=== PATIENT | male | born 1975 | race Caucasian/White ===

== ENCOUNTER 2016-11-25 06:31 | Emergency (ER) | payer OTHER ==
[~2016-11-25] VITALS: Ht 185.4 cm; Wt 248.8 kg
[~2016-11-25 06:31] MED LIST: CLIN150 PO; CLOT1%T TOPICAL; HCTZ25 PO; LISI20 PO; XEROMIS TOPICAL; [UNRECOGNIZED DRUG - CODE] TOPICAL
[2016-11-25 06:53] VITALS: BP 137/77; PULSE 89; RESP 20; TEMP 98.5; O2SAT 95
--- NOTE | 2016-11-25 06:58 | PD ---
HPI Chief Complaint: Musculoskeletal Complaint Time Seen by Provider: 06:50 Travel History International Travel<30 days: No Contact w/Intl Traveler<30days: No Traveled to known affect area: No History of Present Illness HPI 41-year-old male presents to the emergency department by private transportation for complaint of right foot pain. Patient has Charcot foot with chronic changes and has been seen by podiatry and orthopedist. Patient has been told he does not have any procedural options her surgical options regarding his chronic foot condition. Patient is diabetic and has not been following up with podiatry but has not noticed any ulcerations or wounds on his feet. Patient presents without any coolness or pallor of the foot and states he specifically felt and heard a pop sensation this morning as he was walking without his walking boot across the floor in his bedroom. Patient is reportedly 6/10 in intensity. PFSH Past Medical History Narrative Medical Arthritis negative cardiac catheterization hypertension dyslipidemia CO diabetes Charcot foot osteomyelitis and cellulitis sleep apnea; no surgery; no tobacco use; nursing notes reviewed Arthritis: Yes (LEFT WRIST) Asthma: No Anxiety: No Depression: No Heart Rhythm Problems: No Cancer: No Cardiac Catheterization: Yes (NEG) Cardiovascular Problems: Yes High Cholesterol: No Chest Pain: No Congestive Heart Failure: No COPD: No Cerebrovascular Accident: No Coronary Artery Disease: Yes Diabetes: No Diminished Hearing: No Endocrine: No GERD: No Genitourinary: No Hiatal Hernia: No Immune Disorder: No Kidney Stones: No Musculoskeletal: No Neurologic: No Psychiatric: No Reproductive: No Respiratory: Yes (SLEEP APNEA) Immunizations Current: No Migraines: No Myocardial Infarction: Yes (SLEEP APNEA INDUCED PER PT) Renal Failure: No Seizures: No Sickle Cell Disease: No Sleep Apnea: Yes (BIPAP) Thyroid Disease: No Ulcer: No Past Surgical History Abdominal Surgery: No AICD: No Arteriovenous Shunt: No Cardiac Surgery: Yes (CARDIAC CATH) Ear Surgery: No Endocrine Surgery: No Eye Surgery: No Genitourinary Surgery: No Gynecologic Surgery: No Insulin Pump: No Joint Replacement: No Oral Surgery: No Pacemaker: No Thoracic Surgery: No Other Surgery: Yes Social History Alcohol Use: No Tobacco Use: No Substance Use: No Allergies-Medications (Allergen,Severity, Reaction): Coded Allergies: No Known Allergies (Verified , 11/25/16) Reported Meds & Prescriptions Reported Meds & Active Scripts Active Reported Glipizide 5 Mg Tab 5 Mg PO DAILY Take 30 minutes before a meal Metformin (Metformin HCl) 500 Mg Tab 500 Mg PO DAILY With a meal Meloxicam 15 Mg Tab 15 Mg PO DAILY Hydrochlorothiazide 25 Mg Tab 25 Mg PO DAILY Lisinopril 40 Mg Tab 40 Mg PO DAILY Review of Systems Except as stated in HPI: all other systems reviewed are Neg Physical Exam Narrative Gen.: Well-developed, morbidly obese male in no acute distress no respiratory distress Extremity: Attention right lower extremity; warm pink foot with brisk capillary refill less than 2 seconds; dorsalis pedis pulse 2+ to palpation; no open wounds or ulcerations or erythema noted. Data Data Last Documented VS Vital Signs Date Time Temp Pulse Resp B/P Pulse Ox O2 Delivery O2 Flow Rate FiO2 11/25/16 06:53 98.5 89 20 137/77 95 Room Air Orders Foot, Complete ([id number]) (11/25/16 ) MDM Medical Decision Making Medical Screen Exam Complete: Yes Emergency Medical Condition: Yes Medical Record Reviewed: Yes Differential Diagnosis Stress fracture, plantar fasciitis, strain Narrative Course Imaging of the right foot x-ray ordered Imaging signed over to Dr Piedra Diagnosis Primary Impression: Foot pain, right Referrals: Fire Marshal call for appointment Symone Liriano MD Nov 25, 2016 06:58 Symone Liriano MD Nov 25, 2016 06:58
[2016-11-25] MEDS ORDERED: GLIP5TAB8 PO (07:01)
[2016-11-25] MEDS ORDERED: MELO-1 PO (07:01)
[2016-11-25] MEDS ORDERED: METF500T PO (07:01)
[2016-11-25] MEDS ORDERED: LISI40TA PO (07:01)
[2016-11-25] MEDS ORDERED: HYDR25TA5 PO (07:01)
--- NOTE | 2016-11-25 07:08 | PD ---
Physical Exam Narrative Received sign out from previous team to follow up xray of right foot. 41yo M with charcot foot and DM here with right foot pain after walking to bathroom without his boot. Pt currently does not want any pain medication. DP 2+. Pain in lateral foot. Xray right foot showed chronic and progressive changes at proximal fourth and fifth metatarsal and adjacent TMT joints. Also new abnormal appearance to the navicular bone and cuboid bone. Overall appearance raises suspicion for charcot joint. Pt is known to have charcot joint. Data Data Last Documented VS Vital Signs Date Time Temp Pulse Resp B/P Pulse Ox O2 Delivery O2 Flow Rate FiO2 11/25/16 06:53 98.5 89 20 137/77 95 Room Air Orders Foot, Complete ([id number]) (11/25/16 ) [facility] Supervised Visit with TANIA: No Interpretation(s) Last Impressions Foot X-Ray 11/25/16 0000 Signed Impressions: Service Date/Time: Friday, November 25, 2016 07:12 - CONCLUSION: Abnormal examination with chronic and progressive changes at the proximal fourth and fifth metatarsal and the adjacent TMT joints. Cannot exclude disruption of the Lisfranc joint in this region. There is also new abnormal appearance to the navicular bone and cuboid bone. Overall appearance raises suspicion for Charcot joint. Adrian Mccray MD Diagnosis Primary Impression: Foot pain, right Referrals: Bruce Marcos DPM call for appointment Multiple Knife Edge Trimmer Operator call for appointment Patient Instructions: General Instructions Departure Forms: Tests/Procedures Additional Instruction: Please follow up with potline monitor in 1-2 days. Return to the ED if symptoms worsen. Med/Other Pt SpecificInfo: No Change to Meds Disposition: 01 DISCHARGE HOME Condition: Stable Lynn Piedra DO Nov 25, 2016 07:08
--- NOTE | 2016-11-25 07:32 | RADHPO ---
EXAM DATE/TIME: 11/25/2016 07:12 [facility] COMPARISON: CT FOOT LEFT W CONTRAST, December 13, 2013, 21:29. FOOT RIGHT COMPLETE ([id number]), October 01, 2014, 19:26. INDICATIONS : Right foot pain lateral side MEDICAL HISTORY : Cardiovascular disease. Myocardial infarction. CAD SURGICAL HISTORY : Cardiac catheterization. ENCOUNTER: Initial ACUITY: 1 day PAIN SCORE: 10/10 LOCATION: Right Foot FINDINGS: 3 views of the right foot demonstrate no acute fracture or dislocation. The proximal third and fourth metatarsal have a heterogeneous density and there is mineralization within the adjacent soft tissues . There may be disruption of the Lisfranc joint proximally at the third and fourth tarsometatarsal chelsy ints. Some of the soft tissue mineralization on the dorsal aspect of the foot has resolve but there i s more coarse appearing organized ossification between the second and third metatarsal. The navicular bone has an abnormal shape, new from the prior study with flattening and osteophytes. There is also heterogeneous density with possible fragmentation of the cuboid. Degenerative changes have increased at the tibiotalar joint. There is diffuse soft tissue swelling. No radiopaque foreign body is present . CONCLUSION: Abnormal examination with chronic and progressive changes at the proximal fourth and fifth metatarsal and the adjacent TMT joints. Cannot exclude disruption of the Lisfranc joint in this region. There i s also new abnormal appearance to the navicular bone and cuboid bone. Overall appearance raises suspi cion for Charcot joint. Adrian Mccray MD on November 25, 2016 at 7:26 Board Certified Radiologist. This report was verified electronically.
== END 2016-11-25 08:29 | disposition home or self-care (01) ==
LOC: PHED 06:31
DX: M79.671 Pain in right foot (principal); E11.610 Type 2 diabetes mellitus with diabetic neuropathic arthropathy; M14.671 Charcot's joint, right ankle and foot; I25.10 Atherosclerotic heart disease of native coronary artery without angina pectoris; I10 Essential (primary) hypertension; E78.5 Hyperlipidemia, unspecified; M86.9 Osteomyelitis, unspecified; I25.2 Old myocardial infarction
CPT/HCPCS: 73630; 99283